=== PATIENT | male | born 1995 | race African-American/Black ===

== ENCOUNTER 2016-07-19 09:29 | Emergency (ER) | payer OTHER ==
[2016-07-19 10:15] LABS: INFLUENZA A NEG (NEG); INFLUENZA B NEG (NEG)
== END 2016-07-19 10:29 | disposition home or self-care (01) ==
LOC: CFTX 09:29 → CED 09:29 → CFTX 09:56
PROVIDERS: Nurse Practitioner
DX: J02.9 Acute pharyngitis, unspecified (principal); J31.0 Chronic rhinitis
CPT/HCPCS: 87651; 87804; 99282

== ENCOUNTER 2016-09-24 21:16 | Emergency (ER) | payer OTHER ==
[~2016-09-24] VITALS: Ht 172.7 cm; Wt 99.8 kg
== END 2016-09-25 | disposition home or self-care (01) ==
LOC: CED 21:16 → CFTX 21:16
DX: K11.20 Sialoadenitis, unspecified (principal)
CPT/HCPCS: 96372; 99282; J1885

== ENCOUNTER 2016-09-29 22:32 | Emergency (ER) | payer OTHER ==
[~2016-09-29] VITALS: Ht 175.3 cm; Wt 99.8 kg
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
== END 2016-09-30 02:06 | disposition home or self-care (01) ==
LOC: CED 22:32
DX: S16.1XXA Strain of muscle, fascia and tendon at neck level, initial encounter (principal); S39.012A Strain of muscle, fascia and tendon of lower back, initial encounter; V49.40XA Driver injured in collision with unspecified motor vehicles in traffic accident, initial encounter; Y93.89 Activity, other specified; Y92.410 Unspecified street and highway as the place of occurrence of the external cause
CPT/HCPCS: 72040; 72100; 99283

== ENCOUNTER 2016-11-19 11:09 | Emergency (ER) | payer OTHER ==
[~2016-11-19] VITALS: Ht 175.3 cm; Wt 104.3 kg
[2016-11-19 11:47] LABS: URINE SOURCE CLEAN CATCH
[2016-11-19 11:53] LABS: URINE APPEARANCE CLEAR; URINE BILIRUBIN NEG (NEG); URINE BLOOD TRACE (NEG); URINE COLOR YELLOW; URINE GLUCOSE NEG (NEG); URINE KETONE NEG (NEG); URINE LEUKOCYTE ESTERASE 2+ (NEG); URINE NITRATE NEG (NEG); URINE PH 5.5 (5-8); URINE PROTEIN TRACE (NEG); URINE SPECIFIC GRAVITY 1.023 (1.003-1.035)
[2016-11-19 11:55] LABS: CULTURE INDICATED? YES; URBCS1 AUWI 0-2 /[HPF] (0-2); URINE BACTERIA AUWI NEG (NEGATIVE); URINE SQUAMOUS EPITHELIAL CELL NONE SEEN /[HPF]; UWBCS1 AUWI 100-200 (0-5)
[2016-11-21 01:09] LABS: CHLAMYDIA TRACH Not Detected (Not Detected); N GONOR Detected (Not Detected)
== END 2016-11-19 12:37 | disposition home or self-care (01) ==
LOC: CFTX 11:09 → CED 11:09 → CFTX 11:26
PROVIDERS: Nurse Practitioner Family
DX: A64 Unspecified sexually transmitted disease (principal)
CPT/HCPCS: 81003; 87086; 87491; 87591; 96372; 99283; J0696